=== PATIENT | male | born 1960 | race Caucasian/White ===

== ENCOUNTER 2016-12-04 16:13 | Emergency (ER) | payer MEDICAID ==
[~2016-12-04] VITALS: Ht 177.8 cm; Wt 64.0 kg
[~2016-12-04 16:13] MED LIST: AMOX1TAB64 PO; HALO5AMP3; HYDR-3240 PO; HYDR1TAB12; LORA-445 PO; LORA-446 PO; QUET100T4; SERT50TA PO; SULF1TAB24 PO
[2016-12-04 16:34] VITALS: BP 117/78
[2016-12-04 16:44] LABS: HEMOGLOBIN 14.8 g/dL (13.7-18.0)
[2016-12-04 16:55] LABS: DAU SCREEN DISCLAIMER
[2016-12-04 16:56] LABS: BLOOD UREA NITROGEN 8 mg/dL (7-18)
[2016-12-04 17:11] LABS: ACETAMINOPHEN < 2 mcg/mL (10-30)
== END 2016-12-04 20:37 | disposition home or self-care (01) ==
LOC: MERGE 16:13 → ED 20:31
DX: F10.129 Alcohol abuse with intoxication, unspecified (principal); F10.20 Alcohol dependence, uncomplicated
CPT/HCPCS: 36415; 80048; 80307; 80329; 82040; 85025; 99284; G0480

== ENCOUNTER 2016-12-06 20:46 | Emergency (ER) | payer MEDICAID ==
[~2016-12-06] VITALS: Ht 165.1 cm; Wt 64.0 kg
[2016-12-06 21:15] LABS: HEMOGLOBIN 14.4 g/dL (13.7-18.0)
[2016-12-06 21:26] LABS: BLOOD UREA NITROGEN 12 mg/dL (7-18)
[2016-12-06 21:29] LABS: ASPARTATE AMINO TRANSFERASE 33 U/L (15-37)
[2016-12-06 21:36] LABS: DIFF TOTAL CELLS COUNTED 100 CELL DIFF
[2016-12-06 21:39] LABS: VERIFY COUNTS? YES
[2016-12-06 21:41] LABS: ANISOCYTOSIS 1+; POIKILOCYTOSIS 1+; SMUDGE CELLS 1+
[2016-12-06] MEDS ORDERED: CHLORDIAZEPOXIDE 25 MG CAPSULE PO ONE (22:00)
[2016-12-06] MEDS ORDERED: CHLORDIAZEPOXIDE 5 MG CAPSULE PO ONE (22:00)
[2016-12-06 22:50] VITALS: BP 124/70
== END 2016-12-06 22:52 | disposition home or self-care (01) ==
LOC: ED 22:46
DX: F10.20 Alcohol dependence, uncomplicated (principal); F17.200 Nicotine dependence, unspecified, uncomplicated; Z88.5 Allergy status to narcotic agent
CPT/HCPCS: 36415; 80053; 80307; 85025; 99284

== ENCOUNTER 2016-12-16 22:23 | Emergency (ER) | payer MEDICAID ==
[~2016-12-16] VITALS: Ht 165.1 cm; Wt 75.0 kg
[~2016-12-16 22:23] MED LIST changes: +QUET50TA5 PO
[2016-12-16] MEDS ORDERED: SODIUM CHLORIDE FLUSH 10ML SYR IVF ONE (23:00)
[2016-12-16] MEDS ORDERED: SODIUM CHLORIDE 0.9% 1,000ML IVBOLUS ONE (23:00)
[2016-12-16 23:13] LABS: BLOOD UREA NITROGEN 11 mg/dL (7-18)
[2016-12-16 23:15] LABS: HEMOGLOBIN 15.2 g/dL (13.7-18.0)
[2016-12-16 23:18] LABS: ASPARTATE AMINO TRANSFERASE 48 U/L (15-37)
[2016-12-17 04:45] VITALS: BP 121/75
== END 2016-12-17 05:08 | disposition home or self-care (01) ==
LOC: ED 23:59
DX: F10.229 Alcohol dependence with intoxication, unspecified (principal); F17.200 Nicotine dependence, unspecified, uncomplicated
CPT/HCPCS: 36415; 71020; 80053; 85025; 93005; 96360; 96361; 99285; J7030

== ENCOUNTER 2016-12-22 12:34 | Emergency (ER) | payer MEDICAID ==
[~2016-12-22] VITALS: Ht 175.3 cm; Wt 75.0 kg
[2016-12-22 17:18] VITALS: BP 110/86
== END 2016-12-22 17:21 | disposition home or self-care (01) ==
LOC: ED 14:10
DX: F10.220 Alcohol dependence with intoxication, uncomplicated (principal); F15.10 Other stimulant abuse, uncomplicated
CPT/HCPCS: 99283

== ENCOUNTER 2016-12-22 23:07 | Emergency (ER) | payer MEDICAID ==
[~2016-12-22] VITALS: Ht 165.1 cm; Wt 67.9 kg
[2016-12-23] MEDS ORDERED: IBUPROFEN 200 MG TABLET ONE (04:51)
[2016-12-23 04:59] VITALS: BP 120/82
[2016-12-23] MEDS ORDERED: IBUPROFEN 200 MG TABLET PO ONE (05:00)
== END 2016-12-23 05:10 | disposition home or self-care (01) ==
LOC: ED 23:46
DX: F10.220 Alcohol dependence with intoxication, uncomplicated (principal)
CPT/HCPCS: 99283

== ENCOUNTER 2016-12-23 20:13 | Emergency (ER) | payer MEDICAID | END 2016-12-23 21:09 | disposition left against medical advice (07) | LOC: ED 20:18 | DX: F10.129 Alcohol abuse with intoxication, unspecified (principal); Z53.21 Procedure and treatment not carried out due to patient leaving prior to being seen by health care provider ==

== ENCOUNTER 2016-12-27 22:17 | Emergency (ER) | payer MEDICAID ==
[~2016-12-27] VITALS: Ht 165.1 cm; Wt 68.0 kg
[2016-12-27 22:41] VITALS: BP 131/89
== END 2016-12-28 00:25 | disposition home or self-care (01) ==
LOC: ED 23:13
DX: F10.220 Alcohol dependence with intoxication, uncomplicated (principal)
CPT/HCPCS: 99283

== ENCOUNTER 2016-12-28 14:19 | Emergency (ER) | payer MEDICAID ==
[~2016-12-28] VITALS: Ht 167.6 cm; Wt 68.1 kg
[2016-12-28 14:19] VITALS: BP 98/50
== END 2016-12-28 15:40 | disposition left against medical advice (07) ==
LOC: ED 14:51
DX: F10.220 Alcohol dependence with intoxication, uncomplicated (principal); Y90.9 Presence of alcohol in blood, level not specified
CPT/HCPCS: 99281

== ENCOUNTER 2017-03-16 07:02 | Emergency (ER) | payer MEDICAID ==
[~2017-03-16] VITALS: Ht 167.6 cm; Wt 74.0 kg
[2017-03-16 07:05] VITALS: BP 115/70
== END 2017-03-16 09:05 | disposition home or self-care (01) ==
LOC: ED 08:08
DX: S00.03XA Contusion of scalp, initial encounter (principal); F10.220 Alcohol dependence with intoxication, uncomplicated; Z88.5 Allergy status to narcotic agent; Y08.89XA Assault by other specified means, initial encounter; Y93.89 Activity, other specified; Y92.89 Other specified places as the place of occurrence of the external cause; Y99.8 Other external cause status
CPT/HCPCS: 70450; 72125; 99284

== ENCOUNTER 2021-05-01 20:56 | Emergency (ER) | payer MEDICAID ==
[~2021-05-01] VITALS: Ht 172.7 cm; Wt 80.0 kg
[~2021-05-01 20:56] MED LIST changes: +HYDR-2214 PO; -HYDR-3240 PO; -HYDR1TAB12; +HYDR1TAB13; +SULF-23 PO; -SULF1TAB24 PO
[2021-05-01] MEDS ORDERED: MAALOX/HYOSCYAMINE/LIDOCAINE 45 ML BTL ONE (21:31)
[2021-05-01] MEDS ORDERED: MAALOX/HYOSCYAMINE/LIDOCAINE 45 ML BTL PO ONE (22:30)
--- NOTE | 2021-05-01 23:30 | NUR ---
pt able to ambulate without assistance to restroom. states he will get a ride home, refused taxi voucher. provided with jacket for comfort. erp aware pt sobered up
[2021-05-01 23:33] VITALS: BP 109/66
== END 2021-05-01 23:53 | disposition home or self-care (01) ==
LOC: ED 23:00
DX: F10.120 Alcohol abuse with intoxication, uncomplicated (principal); Z72.9 Problem related to lifestyle, unspecified; F17.200 Nicotine dependence, unspecified, uncomplicated; Y90.0 Blood alcohol level of less than 20 mg/100 ml
CPT/HCPCS: 99283

== ENCOUNTER 2021-05-02 01:06 | Emergency (ER) | payer MEDICAID ==
[~2021-05-02] VITALS: Ht 172.7 cm; Wt 80.0 kg
[2021-05-02] MEDS ORDERED: ONDANSETRON ODT 8 MG ONE (01:18)
--- NOTE | 2021-05-02 01:26 | NUR ---
PT LAYING ON CART, CLEAR EMESIS NOTED. GIVEN ZOFRAN ODT. WILL CTM.
[2021-05-02] MEDS ORDERED: ONDANSETRON ODT 4 MG PO ONE (01:30)
--- NOTE | 2021-05-02 02:12 | NUR ---
attempted to breathalize pt. pt unable to take full breath and get breathilizer at this time. erp updated
[2021-05-02 04:53] VITALS: BP 105/81
== END 2021-05-02 05:07 | disposition home or self-care (01) ==
LOC: ED 01:23
DX: F10.120 Alcohol abuse with intoxication, uncomplicated (principal); Z72.9 Problem related to lifestyle, unspecified; F17.210 Nicotine dependence, cigarettes, uncomplicated; Y90.0 Blood alcohol level of less than 20 mg/100 ml
CPT/HCPCS: 99283; 99406; Q0162

== ENCOUNTER 2021-05-03 16:31 | Emergency (ER) | payer MEDICAID ==
[~2021-05-03] VITALS: Ht 177.8 cm; Wt 60.7 kg
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
--- NOTE | 2021-05-03 17:20 | NUR ---
PT LAYING IN BED ON LEFT SIDE YELLING OUT RANDOM GRUNTS. PT DOOR CLOSED FOR PRIVACY. STAFF IS WATCHING PT FOR SAFETY
[2021-05-03] MEDS ORDERED: ONDANSETRON ODT 8 MG ONE (17:49)
[2021-05-03] MEDS ORDERED: ONDANSETRON ODT 8 MG PO ONE (18:00)
--- NOTE | 2021-05-03 18:00 | NUR ---
late entry::PT VOMITING ON FLOOR. PT MEDICATED FOR NAUSEA/VOMITING PER EMAR.
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
[2021-05-03 19:22] VITALS: BP 128/85
--- NOTE | 2021-05-03 21:50 | NUR ---
PATIENT AMBULATORY WITH STEADY GAIT.
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
--- NOTE | 2021-05-03 22:52 | NUR ---
CONFIRMED WITH LAB THEY HAVE PATIENT URINE.
[2021-05-03 22:55] LABS: ALANINE AMINOTRANSFERASE 72 U/L (12-78); ALBUMIN 3.6 g/dL (3.4-5.0); ANION GAP 9 mmol/L (5-15); CHLORIDE 104 mmol/L (98-107); CREATININE 0.68 mg/dL (0.7-1.3); SALICYLATE LEVEL 2.2 mg/dL (2.8-20.0)
[2021-05-03 22:57] LABS: ALKALINE PHOSPHATASE 135 U/L (45-117); BILIRUBIN,TOTAL 0.4 mg/dL (0.2-1.0); MEAN CORPUSCULAR HEMOGLOBIN 30.2 pg (27.5-34.5); MEAN CORPUSCULAR HGB CONC 33.6 g/dL (33.2-36.2); MEAN PLATELET VOLUME 7.7 fL (7.4-10.4); PLATELET COUNT 175 x10^3/uL (130-400); RED CELL DISTRIBUTION WIDTH 14.2 % (9.4-14.8); TOTAL PROTEIN 6.5 g/dL (6.4-8.2)
[2021-05-03 23:08] LABS: AMPHETAMINE SCREEN, URINE Negative (Negative); BARBITURATE SCREEN, URINE Negative (Negative); BENZODIAZEPINE SCREEN, URINE Negative (Negative); CANNABINOID SCREEN, URINE Positive (Negative); COCAINE SCREEN, URINE Negative (Negative); METHADONE SCREEN, URINE Negative (Negative); OPIATE SCREEN, URINE Negative (Negative)
[2021-05-03 23:45] LABS: LYMPH#(MANUAL) 22.27 x10^3/uL (1-3.4); LYMPHS% (MANUAL) 85 % (22-44); MONOS#(MANUAL) 0.79 x10^3/uL (0.3-2.7); MONOS% (MANUAL) 3 % (2-9); SEG#(MANUAL) 3.14 x10^3/uL (1.8-6.8); SEGS% (MANUAL) 12 % (42-75)
[2021-05-03 23:46] LABS: SMUDGE CELLS 2+
[2021-05-03 23:47] LABS: <PLATELET ESTIMATE> ADEQUATE; <PLT MORPHOLOGY> NORMAL PLT MORPH; ANISOCYTOSIS 1+
--- NOTE | 2021-05-04 00:11 | NUR ---
PATIENT PROVIDED WITH TAXI TO [facility].
--- NOTE | 2021-05-04 00:12 | NUR ---
Patient given discharge instructions and they have confirmed that they understand the instructions. Patient ambulatory with steady gait. NAD, all questions answered appropriately, denies additional needs at this time. No personal belongings left in room after discharge.
== END 2021-05-04 00:13 | disposition home or self-care (01) ==
LOC: ED 16:41
DX: F10.129 Alcohol abuse with intoxication, unspecified (principal); F19.94 Other psychoactive substance use, unspecified with psychoactive substance-induced mood disorder; Y90.9 Presence of alcohol in blood, level not specified
CPT/HCPCS: 36415; 80053; 80299; 80307; 80320; 85025; 99283; Q0162; 80329; G0480

== ENCOUNTER 2021-05-06 21:58 | Emergency (ER) | payer MEDICAID ==
[~2021-05-06] VITALS: Ht 177.8 cm; Wt 77.3 kg
--- NOTE | 2021-05-06 23:41 | NUR ---
patient keeps removing monitor equipment. patient advised of importance of keeping it on. reinforcement needed
[2021-05-07 00:11] VITALS: BP 101/55
--- NOTE | 2021-05-07 01:40 | NUR ---
failed road test. Raji WERNER informed
--- NOTE | 2021-05-07 02:51 | NUR ---
patient eloped from ER. Patient A/O x 4, VSS, ambulated without assistance. patient provided with taxi voucher for safely getting home
== END 2021-05-07 02:57 | disposition left against medical advice (07) ==
LOC: ED 22:36
DX: F10.120 Alcohol abuse with intoxication, uncomplicated (principal); Y90.9 Presence of alcohol in blood, level not specified
CPT/HCPCS: 99283

== ENCOUNTER 2021-05-12 17:26 | Inpatient (IN) | payer MEDICAID ==
[~2021-05-12] VITALS: Ht 167.6 cm; Wt 61.8 kg
[2021-05-12] MEDS ORDERED: ACETAMINOPHEN 325 MG TABLET PO PRN (18:00)
[2021-05-12] MEDS ORDERED: DOCUSATE 100 MG CAPSULE PO PRN (18:00)
[2021-05-12] MEDS ORDERED: BISACODYL 10 MG SUPP PR PRN (18:00)
[2021-05-12] MEDS ORDERED: ONDANSETRON ODT 4 MG PO PRN (18:00)
[2021-05-12] MEDS ORDERED: POLYETHYLENE GLYCOL 17 GM PACKET PO PRN (18:00)
[2021-05-12] MEDS ORDERED: LORazepam 1MG TABLET ONE (22:31)
[2021-05-12] MEDS: LORazepam 1MG TABLET PO SCH (22:38)
[2021-05-12 23:31] VITALS: BP 146/88
[2021-05-13] MEDS: LORazepam 1MG TABLET PO SCH ×4 (04:30→22:27)
[2021-05-13 07:04] LABS: CHOL/HDL RATIO 2.4; FREE T4 (FREE THYROXINE) 1.08 ng/dL (0.76-1.46); LDL/HDL RATIO 1.1 (0.5-3.0)
[2021-05-13 07:37] VITALS: BP 164/79
[2021-05-13 07:39] LABS: MICROSCOPIC NOT IND
[2021-05-13] MEDS: ACAMPROSATE 333 MG TABLET.DR PO SCH ×3 (08:49→20:45)
[2021-05-13] MEDS: THIAMINE 100MG TABLET PO SCH (08:50)
[2021-05-13] MEDS: FOLIC ACID 1 MG TABLET PO SCH (08:50)
[2021-05-13] MEDS ORDERED: GABA600T7 PO (13:38)
[2021-05-13] MEDS ORDERED: ALBU8.5H8 INH (13:46)
[2021-05-13] MEDS ORDERED: SERT100T32 PO (13:46)
[2021-05-13] MEDS ORDERED: IBUP-1223 PO (13:46)
[2021-05-13] MEDS ORDERED: CYCL10TA2 PO (13:46)
[2021-05-13] MEDS ORDERED: ALBUTEROL HFA 90 MCG/SPRAY INH PRN (14:00)
[2021-05-13] MEDS ORDERED: IBUPROFEN 200 MG TABLET PO PRN (14:00)
[2021-05-13] MEDS: GABAPENTIN 300 MG CAPSULE PO SCH ×3 (14:37→20:44)
[2021-05-13] MEDS: SERTRALINE 100MG TABLET PO SCH (14:37)
[2021-05-13 19:27] VITALS: BP_SYST 146; BP_SYST 151; BP_DIAS 83; BP_DIAS 85
[2021-05-14] MEDS: LORazepam 1MG TABLET PO SCH ×3 (04:30→18:28)
[2021-05-14 07:06] VITALS: BP 133/85
[2021-05-14] MEDS: GABAPENTIN 300 MG CAPSULE PO SCH ×3 (08:09→20:46)
[2021-05-14] MEDS: SERTRALINE 100MG TABLET PO SCH (08:09)
[2021-05-14] MEDS: FOLIC ACID 1 MG TABLET PO SCH (08:10)
[2021-05-14] MEDS: THIAMINE 100MG TABLET PO SCH (08:10)
[2021-05-14] MEDS: ACAMPROSATE 333 MG TABLET.DR PO SCH ×3 (08:10→20:45)
[2021-05-14] MEDS ORDERED: LORazepam 1MG TABLET PO PRN (10:00)
[2021-05-14 19:05] VITALS: BP_SYST 154; BP_SYST 178; BP_DIAS 75; BP_DIAS 84
[2021-05-15] MEDS: LORazepam 1MG TABLET PO SCH ×3 (02:00→16:56)
[2021-05-15 07:37] VITALS: BP 128/72
[2021-05-15] MEDS: ACAMPROSATE 333 MG TABLET.DR PO SCH ×3 (08:17→20:44)
[2021-05-15] MEDS: THIAMINE 100MG TABLET PO SCH (08:17)
[2021-05-15] MEDS: GABAPENTIN 300 MG CAPSULE PO SCH ×3 (08:17→20:44)
[2021-05-15] MEDS: SERTRALINE 100MG TABLET PO SCH (08:17)
[2021-05-15] MEDS: FOLIC ACID 1 MG TABLET PO SCH (08:17)
[2021-05-15] MEDS: DIVALPROEX 500 MG TABLET.DR PO SCH ×2 (12:06→20:44)
[2021-05-15 19:35] VITALS: BP 130/78
[2021-05-16] MEDS: LORazepam 1MG TABLET PO SCH ×3 (02:00→18:08)
[2021-05-16 07:27] VITALS: BP 130/78
[2021-05-16] MEDS: ACAMPROSATE 333 MG TABLET.DR PO SCH ×3 (08:58→20:51)
[2021-05-16] MEDS: DIVALPROEX 500 MG TABLET.DR PO SCH ×2 (08:58→20:51)
[2021-05-16] MEDS: THIAMINE 100MG TABLET PO SCH (08:58)
[2021-05-16] MEDS: FOLIC ACID 1 MG TABLET PO SCH (08:58)
[2021-05-16] MEDS: SERTRALINE 100MG TABLET PO SCH (08:58)
[2021-05-16] MEDS: GABAPENTIN 300 MG CAPSULE PO SCH ×3 (08:59→20:51)
[2021-05-16 19:19] VITALS: BP 141/82
[2021-05-17] MEDS: LORazepam 1MG TABLET PO SCH ×3 (02:00→17:57)
[2021-05-17 06:38] VITALS: BP 135/89
[2021-05-17] MEDS: THIAMINE 100MG TABLET PO SCH (08:36)
[2021-05-17] MEDS: FOLIC ACID 1 MG TABLET PO SCH (08:36)
[2021-05-17] MEDS: DIVALPROEX 500 MG TABLET.DR PO SCH ×2 (08:36→20:04)
[2021-05-17] MEDS: SERTRALINE 100MG TABLET PO SCH (08:36)
[2021-05-17] MEDS: GABAPENTIN 300 MG CAPSULE PO SCH ×3 (08:37→20:04)
[2021-05-17] MEDS: ACAMPROSATE 333 MG TABLET.DR PO SCH ×3 (08:37→20:04)
[2021-05-17 19:33] VITALS: BP 140/78
[2021-05-18] MEDS: LORazepam 1MG TABLET PO SCH ×2 (02:01→10:00)
[2021-05-18 07:34] VITALS: BP 145/82
[2021-05-18] MEDS: DIVALPROEX 500 MG TABLET.DR PO SCH (09:15)
[2021-05-18] MEDS: SERTRALINE 100MG TABLET PO SCH (09:15)
[2021-05-18] MEDS: GABAPENTIN 300 MG CAPSULE PO SCH (09:16)
[2021-05-18] MEDS: FOLIC ACID 1 MG TABLET PO SCH (09:16)
[2021-05-18] MEDS: THIAMINE 100MG TABLET PO SCH (09:17)
[2021-05-18] MEDS: ACAMPROSATE 333 MG TABLET.DR PO SCH (09:37)
[2021-05-18] MEDS ORDERED: SERT100T32 PO (11:25)
[2021-05-18] MEDS ORDERED: DIVA-61 PO (11:25)
[2021-05-18] MEDS ORDERED: IBUP-1902 PO (11:25)
[2021-05-18] MEDS ORDERED: ALBU18HF INH (11:25)
[2021-05-18] MEDS ORDERED: GABA300C PO (11:25)
== END 2021-05-18 14:30 | disposition home or self-care (01) | DRG 885 ==
LOC: 3E 22:00
PROVIDERS: ADMIT Psychiatry & Neurology Psychosomatic Medicine; ATTEND Psychiatry & Neurology Psychosomatic Medicine
DX: F33.2 Major depressive disorder, recurrent severe without psychotic features (principal); F10.239 Alcohol dependence with withdrawal, unspecified; F41.9 Anxiety disorder, unspecified; G89.29 Other chronic pain; J45.909 Unspecified asthma, uncomplicated; Z79.899 Other long term (current) drug therapy
CPT/HCPCS: 36415; 71045; 80061; 81003; 84439; 84443; 87635; 93005

== ENCOUNTER 2021-05-20 06:35 | Inpatient (IN) | payer MEDICAID ==
[~2021-05-20] VITALS: Ht 167.6 cm; Wt 62.0 kg
[~2021-05-20 06:35] MED LIST changes: +ALBU18HF INH; +ALBU8.5H8 INH; +CYCL10TA2 PO; +DIVA-61 PO; +GABA300C PO; +GABA600T7 PO; +IBUP-1223 PO; +IBUP-1902 PO; +SERT100T32 PO
--- NOTE | 2021-05-20 07:00 | NUR ---
REPORT RECEIVED FROM MISTI LANDRY AT BEDSIDE. THIS RN ASSUMING CARE.
[2021-05-20 07:23] LABS: MEAN CORPUSCULAR HEMOGLOBIN 30.9 pg (27.5-34.5); MEAN CORPUSCULAR HGB CONC 33.7 g/dL (33.2-36.2); MEAN PLATELET VOLUME 7.1 fL (7.4-10.4); PLATELET COUNT 214 x10^3/uL (130-400); RED BLOOD COUNT 4.97 x10^6/uL (4.38-5.82); RED CELL DISTRIBUTION WIDTH 16.1 % (9.4-14.8)
--- NOTE | 2021-05-20 07:30 | NUR ---
PT A&O, RESPS EVEN AND UNLABORED, ALL MONITORS IN PLACE, NSR ON FOUNDER & CEO WITH NO ECTOPY. NEURO INTACT. PT ENDORSES FEELINGS OF SI, WITH PLAN TO JUMP OFF BRIDGE. SPO2 DESATURATES WHILE SLEEPING INTERMITTENTLY TO 78%, OXYGEN APPLIED AT 2L/MIN VIA NC. WHEN AWAKE SPOW >90% ON ROOM AIR. PT STATES THAT HE DID CONSUME ETOH PRIOR TO ARRIVAL. URINE SENT TO LAB. SITTER MONITORING FROM [facility] FOR SAFETY.
[2021-05-20 07:32] LABS: ALANINE AMINOTRANSFERASE 31 U/L (12-78); ALBUMIN 3.6 g/dL (3.4-5.0); ANION GAP 13 mmol/L (5-15); CALCIUM 8.6 mg/dL (8.5-10.1); CHLORIDE 102 mmol/L (98-107); CREATININE 0.65 mg/dL (0.7-1.3)
[2021-05-20 07:34] LABS: ALKALINE PHOSPHATASE 161 U/L (45-117); BILIRUBIN,TOTAL 0.2 mg/dL (0.2-1.0); TOTAL PROTEIN 6.8 g/dL (6.4-8.2)
[2021-05-20 07:35] LABS: SALICYLATE LEVEL < 1.7 mg/dL (2.8-20.0)
[2021-05-20 07:52] LABS: AMPHETAMINE SCREEN, URINE Negative (Negative); BARBITURATE SCREEN, URINE Negative (Negative); BENZODIAZEPINE SCREEN, URINE Positive (Negative); CANNABINOID SCREEN, URINE Positive (Negative); COCAINE SCREEN, URINE Negative (Negative); METHADONE SCREEN, URINE Negative (Negative); OPIATE SCREEN, URINE Negative (Negative)
[2021-05-20 08:12] LABS: LYMPHS% (MANUAL) 80 % (22-44); MONOS#(MANUAL) 0.81 x10^3/uL (0.3-2.7); MONOS% (MANUAL) 3 % (2-9); SEG#(MANUAL) 4.59 x10^3/uL (1.8-6.8)
[2021-05-20 08:13] LABS: SEGS% (MANUAL) 17 % (42-75)
[2021-05-20 08:14] LABS: <PLATELET ESTIMATE> ADEQUATE; <PLT MORPHOLOGY> NORMAL PLT MORPH; ANISOCYTOSIS 1+; SMUDGE CELLS 2+
--- NOTE | 2021-05-20 08:31 | NUR ---
MD GO NOTIFIED PT MEETING SIRS CRITERIA, NO SOURCE FOR SEPSIS AT THIS TIME. STATES HE WILL ORDER UA, CXR AND CT ABD PT HAS GENERALIZED ABD PAIN.
[2021-05-20] MEDS ORDERED: ALBUTEROL IH (08:47)
[2021-05-20] MEDS ORDERED: IBUPROFEN PO (08:47)
[2021-05-20] MEDS ORDERED: SERT100T PO (08:47)
[2021-05-20 09:16] LABS: MICROSCOPIC NOT IND
[2021-05-20] MEDS ORDERED: SODIUM CHLORIDE 0.9% 1,000ML IVBOLUS ONE (09:30)
[2021-05-20] MEDS ORDERED: OMNIPAQUE 350 MG/ML, 100ML BOTTLE ONE (09:44)
--- NOTE | 2021-05-20 10:04 | NUR ---
pt resting on gurney, a&o, resps even and unlabored. c/o generalized pain. sinus tach rate 100s on classroom monitor. all results back, chart up for recheck, awaiting md and dispo.
--- NOTE | 2021-05-20 10:32 | NUR ---
all labwork and results reviewed by jasmin ray, per , pt has no source of infection and has chronic elevated wbc. per md, no antibiotics indicated at this time.
--- NOTE | 2021-05-20 11:03 | NUR ---
PT SLEEPING ON GURNEY, RESPS EVEN AND UNLABORED. SITTER MONITORING FROM [facility] FOR SAFETY. AWAITNG PSYCH COUNTER CLERK [employer] ASSESSMENT AND DISPO.
[2021-05-20] MEDS ORDERED: ONDANSETRON 2MG/ML, 2ML IVPush ONE (12:00)
[2021-05-20] MEDS ORDERED: FAMOTIDINE 20 MG/2 ML IVPush ONE (12:00)
[2021-05-20] MEDS ORDERED: FAMOTIDINE 20 MG/2 ML ONE (12:41)
[2021-05-20] MEDS ORDERED: ONDANSETRON 2MG/ML, 2ML ONE (12:41)
[2021-05-20] MEDS ORDERED: LORazepam 1MG TABLET PO ONE (14:00)
[2021-05-20] MEDS ORDERED: LORazepam 2 MG/ML, 1ML IVPush ONE ×2 (14:00→18:00)
[2021-05-20] MEDS ORDERED: LORazepam 2 MG/ML, 1ML ONE ×3 (14:07→17:40)
--- NOTE | 2021-05-20 14:30 | NUR ---
late entry for 1430: report to MISTI Burks for a meal break. pt sleeping, resps even and unlabored, nadn.
--- NOTE | 2021-05-20 15:30 | NUR ---
pt moved to room 2 which was secured. pt sleeping, resps even and unlabored. yohan.
--- NOTE | 2021-05-20 16:20 | NUR ---
pt tremulous when awakened, trialed on room air with room air sat 82%, even when awake and stimulated. MD Daly notified. MD Daly had received sign out from MD Brunner. MD Daly assessed the patient at bedside. orders received for ativan, neb tx and electrolyte replacement. Addendum: 05/20/21 at 1622 by KOFI pt tremulous when awakened, trialed on room air with room air sat 82%, even when awake and stimulated. MD Daly notified. MD Daly had received sign out from MD Brunner. MD Daly notified of hypoxia and tremors despite ativan IV dose administered at 1410. assessed the patient at bedside. orders received for ativan, neb tx and electrolyte replacement.
[2021-05-20] MEDS ORDERED: MAGNESIUM SULFATE 1 GM, THIAMINE 100 MG, FOLIC ACID 1 MG, MVI ADULT 10 ML in SODIUM CHL... IV ONE (16:30)
[2021-05-20] MEDS ORDERED: ALBUTEROL SULFATE 2.5 MG/3 ML ONE (16:36)
[2021-05-20] MEDS ORDERED: ALBUTEROL SULFATE 2.5 MG/3 ML NPPB ONE (17:00)
--- NOTE | 2021-05-20 17:27 | NUR ---
report given to RN MJ, pt awaiting transport to room 434.
[2021-05-20] MEDS ORDERED: LORazepam 2 MG/ML, 1ML IV ONE (17:30)
[2021-05-20] MEDS ORDERED: SODIUM CHLORIDE FLUSH 10ML SYR IVF ONE (17:30)
--- NOTE | 2021-05-20 17:45 | NUR ---
pt remains very tremulous, but is awake and alert and oriented. nsr on in home aide with no ectopy, rate 110s. MD Daly notified, repeat dose ativan ordered and administered per emar. pt awaiting transport to medical floor at this time.
[2021-05-20] MEDS ORDERED: LORazepam 2 MG/ML, 1ML IV PRN ×5 (18:00)
[2021-05-20] MEDS ORDERED: ALBUTEROL/IPRATROPIUM 2.5MG/0.5MG, 3 ML HHN SCH (18:00)
[2021-05-20] MEDS ORDERED: LORazepam 0.5MG TABLET PO PRN (18:00)
[2021-05-20] MEDS ORDERED: LACTATED RINGERS 1,000 ML IV SCH (18:00)
[2021-05-20] MEDS ORDERED: LORazepam 1MG TABLET PO PRN ×3 (18:00)
[2021-05-20] MEDS ORDERED: POLYETHYLENE GLYCOL 17 GM PACKET PO PRN (18:00)
[2021-05-20] MEDS ORDERED: LIDODERM 5% PATCH TD PRN (18:00)
[2021-05-20] MEDS ORDERED: ONDANSETRON ODT 4 MG PO PRN (18:00)
[2021-05-20] MEDS ORDERED: LABETALOL 5MG/ML, 20ML IVPush PRN (18:00)
[2021-05-20 18:02] VITALS: BP 131/80
[2021-05-20 18:06] VITALS: BP 131/80
[2021-05-20] MEDS: GABAPENTIN 300 MG CAPSULE PO SCH ×2 (18:36→21:28)
[2021-05-20] MEDS: ENOXAPARIN 40 MG/0.4 ML SQ SCH (19:29)
[2021-05-20] MEDS: ALBUTEROL-IPRATROPIUM MDI INH INH SCH (21:00)
[2021-05-20] MEDS: DIVALPROEX 500 MG TABLET.DR PO SCH (21:28)
[2021-05-21] MEDS: LORazepam 1MG TABLET PO PRN ×2 (02:37→04:49)
[2021-05-21] MEDS: ALBUTEROL-IPRATROPIUM MDI INH INH SCH ×4 (02:37→22:45)
[2021-05-21 02:43] VITALS: BP 135/80
[2021-05-21 04:46] LABS: ANION GAP 4 mmol/L (5-15); CALCIUM 7.8 mg/dL (8.5-10.1); CHLORIDE 106 mmol/L (98-107)
[2021-05-21 04:47] LABS: CREATININE 0.72 mg/dL (0.7-1.3)
[2021-05-21 04:49] LABS: MEAN CORPUSCULAR HEMOGLOBIN 30.8 pg (27.5-34.5); MEAN CORPUSCULAR HGB CONC 33.4 g/dL (33.2-36.2); MEAN PLATELET VOLUME 7.3 fL (7.4-10.4); PLATELET COUNT 181 x10^3/uL (130-400); RED BLOOD COUNT 4.26 x10^6/uL (4.38-5.82)
[2021-05-21 06:25] LABS: <PLATELET ESTIMATE> ADEQUATE; <PLT MORPHOLOGY> NORMAL PLT MORPH; ANISOCYTOSIS 1+; BAND#(MANUAL) 0.39 x10^3/uL; BANDS%(MANUAL) 3 % (0-7); LYMPH#(MANUAL) 9.49 x10^3/uL (1-3.4); LYMPHS% (MANUAL) 73 % (22-44); MONOS#(MANUAL) 0.39 x10^3/uL (0.3-2.7); MONOS% (MANUAL) 3 % (2-9); SEG#(MANUAL) 2.73 x10^3/uL (1.8-6.8); SEGS% (MANUAL) 21 % (42-75)
[2021-05-21 06:43] VITALS: BP 142/80
[2021-05-21] MEDS: SENNA/DOCUSATE TABLET PO SCH ×2 (09:00→09:59)
[2021-05-21] MEDS: PANTOPRAZOLE 40MG TABLET PO SCH (09:58)
[2021-05-21] MEDS: GABAPENTIN 300 MG CAPSULE PO SCH ×2 (09:58→17:58)
[2021-05-21] MEDS: FOLIC ACID 1 MG TABLET PO SCH (09:59)
[2021-05-21] MEDS: THIAMINE 100MG TABLET PO SCH (09:59)
[2021-05-21] MEDS: DOXYCYCLINE 100MG TABLET PO SCH ×2 (09:59→21:56)
[2021-05-21] MEDS: DIVALPROEX 500 MG TABLET.DR PO SCH ×2 (09:59→21:56)
[2021-05-21] MEDS: SERTRALINE 100MG TABLET PO SCH (09:59)
[2021-05-21] MEDS: ACETAMINOPHEN 325 MG TABLET PO PRN ×4 (12:38→23:45)
[2021-05-21] MEDS: CYCLOBENZAPRINE 10 MG TABLET PO PRN (12:50)
[2021-05-21 14:27] VITALS: BP 111/68
[2021-05-21] MEDS ORDERED: CEFTRIAXONE 1,000 MG in DEXTROSE 5% 50 ML IVPB SCH (15:00)
[2021-05-21 15:31] VITALS: BP 150/77
[2021-05-21] MEDS ORDERED: SODIUM CHLORIDE 0.9% 1,000ML IVBOLUS ONE (16:00)
[2021-05-21] MEDS: AMPICILLIN/SULBACTAM 1,500 MG in SODIUM CHLORIDE 0.9% 50 ML IV SCH (17:58)
[2021-05-21] MEDS: ALBUTEROL HFA 90 MCG/SPRAY INH PRN (19:37)
[2021-05-21] MEDS: ENOXAPARIN 40 MG/0.4 ML SQ SCH (19:38)
[2021-05-21 19:41] VITALS: BP 147/84
[2021-05-21 21:53] VITALS: BP 134/80
[2021-05-22 00:12] VITALS: BP 121/77
[2021-05-22] MEDS: AMPICILLIN/SULBACTAM 1,500 MG in SODIUM CHLORIDE 0.9% 50 ML IV SCH (02:41)
[2021-05-22] MEDS: GABAPENTIN 300 MG CAPSULE PO SCH ×3 (02:41→16:42)
[2021-05-22] MEDS: ALBUTEROL-IPRATROPIUM MDI INH INH SCH ×4 (05:02→22:26)
[2021-05-22 05:09] LABS: MEAN CORPUSCULAR HEMOGLOBIN 30.9 pg (27.5-34.5); MEAN CORPUSCULAR HGB CONC 33.7 g/dL (33.2-36.2); MEAN PLATELET VOLUME 7.6 fL (7.4-10.4); PLATELET COUNT 161 x10^3/uL (130-400); RED BLOOD COUNT 4.15 x10^6/uL (4.38-5.82); RED CELL DISTRIBUTION WIDTH 15.7 % (9.4-14.8)
[2021-05-22 05:22] LABS: CHLORIDE 103 mmol/L (98-107)
[2021-05-22 05:29] LABS: ALANINE AMINOTRANSFERASE 24 U/L (12-78); ALBUMIN 2.4 g/dL (3.4-5.0); ALKALINE PHOSPHATASE 122 U/L (45-117); ANION GAP 6 mmol/L (5-15); BILIRUBIN,TOTAL 0.6 mg/dL (0.2-1.0); CALCIUM 7.4 mg/dL (8.5-10.1); CREATININE 0.68 mg/dL (0.7-1.3); TOTAL PROTEIN 5.7 g/dL (6.4-8.2)
[2021-05-22 05:50] LABS: BAND#(MANUAL) 0.82 x10^3/uL; BANDS%(MANUAL) 4 % (0-7); MONOS% (MANUAL) 1 % (2-9)
[2021-05-22 05:51] LABS: LYMPH#(MANUAL) 14.48 x10^3/uL (1-3.4); LYMPHS% (MANUAL) 71 % (22-44); SEGS% (MANUAL) 24 % (42-75)
[2021-05-22 05:52] LABS: <PLATELET ESTIMATE> ADEQUATE; <PLT MORPHOLOGY> NORMAL PLT MORPH; <RBC MORPHOLOGY> NORMAL; SMUDGE CELLS 2+
[2021-05-22 06:54] VITALS: BP 129/78
[2021-05-22] MEDS: SENNA/DOCUSATE TABLET PO SCH (09:00)
[2021-05-22] MEDS: THIAMINE 100MG TABLET PO SCH (09:03)
[2021-05-22] MEDS: SERTRALINE 100MG TABLET PO SCH (09:03)
[2021-05-22] MEDS: DOXYCYCLINE 100MG TABLET PO SCH ×2 (09:03→20:57)
[2021-05-22] MEDS: PANTOPRAZOLE 40MG TABLET PO SCH (09:05)
[2021-05-22] MEDS: FOLIC ACID 1 MG TABLET PO SCH (09:05)
[2021-05-22] MEDS: DIVALPROEX 500 MG TABLET.DR PO SCH ×2 (09:05→20:57)
[2021-05-22] MEDS: AMPICILLIN/SULBACTAM 3 GM in SODIUM CHLORIDE 0.9% 100 ML IV SCH ×4 (10:22→22:22)
[2021-05-22 13:14] VITALS: BP 125/77
[2021-05-22] MEDS: ALBUTEROL HFA 90 MCG/SPRAY INH PRN (16:43)
[2021-05-22 19:04] VITALS: BP_SYST 121; BP_SYST 96; BP_DIAS 57; BP_DIAS 72
[2021-05-22] MEDS: ENOXAPARIN 40 MG/0.4 ML SQ SCH (19:33)
[2021-05-23 01:48] VITALS: BP 120/72
[2021-05-23] MEDS: GABAPENTIN 300 MG CAPSULE PO SCH ×4 (01:51→20:12)
[2021-05-23] MEDS: AMPICILLIN/SULBACTAM 3 GM in SODIUM CHLORIDE 0.9% 100 ML IV SCH ×4 (04:19→22:24)
[2021-05-23] MEDS: ALBUTEROL-IPRATROPIUM MDI INH INH SCH ×4 (04:19→22:25)
[2021-05-23 05:10] LABS: MEAN CORPUSCULAR HEMOGLOBIN 31.4 pg (27.5-34.5); MEAN CORPUSCULAR HGB CONC 34.1 g/dL (33.2-36.2); MEAN PLATELET VOLUME 7.9 fL (7.4-10.4); PLATELET COUNT 154 x10^3/uL (130-400); RED BLOOD COUNT 3.86 x10^6/uL (4.38-5.82); RED CELL DISTRIBUTION WIDTH 15.9 % (9.4-14.8)
[2021-05-23 05:12] LABS: HCT (SEDRATE) 35.5 % (39.2-51.8)
[2021-05-23] MEDS: ACETAMINOPHEN 325 MG TABLET PO PRN (05:14)
[2021-05-23 05:25] LABS: ALBUMIN 2.1 g/dL (3.4-5.0); ANION GAP 4 mmol/L (5-15); CALCIUM 7.8 mg/dL (8.5-10.1); CHLORIDE 103 mmol/L (98-107)
[2021-05-23 05:33] LABS: ALANINE AMINOTRANSFERASE 20 U/L (12-78); ALKALINE PHOSPHATASE 100 U/L (45-117); BILIRUBIN,TOTAL 0.8 mg/dL (0.2-1.0); CREATININE 0.57 mg/dL (0.7-1.3); TOTAL PROTEIN 5.4 g/dL (6.4-8.2)
[2021-05-23 05:56] LABS: BAND#(MANUAL) 0.68 x10^3/uL; BANDS%(MANUAL) 4 % (0-7); LYMPH#(MANUAL) 9.18 x10^3/uL (1-3.4); LYMPHS% (MANUAL) 54 % (22-44); METAMYELOCYTES# (MANUAL) 0.17 x10^3/uL (0-0); METAMYELOCYTES% (MANUAL) 1 % (0-1); MONOS#(MANUAL) 0.34 x10^3/uL (0.3-2.7); MONOS% (MANUAL) 2 % (2-9); SEG#(MANUAL) 6.63 x10^3/uL (1.8-6.8); SEGS% (MANUAL) 39 % (42-75)
[2021-05-23 05:57] LABS: ANISOCYTOSIS 1+; SMUDGE CELLS 2+
[2021-05-23 05:58] LABS: <PLATELET ESTIMATE> ADEQUATE; <PLT MORPHOLOGY> NORMAL PLT MORPH
[2021-05-23] MEDS: SERTRALINE 100MG TABLET PO SCH (07:41)
[2021-05-23] MEDS: DOXYCYCLINE 100MG TABLET PO SCH ×2 (07:41→20:12)
[2021-05-23] MEDS: FOLIC ACID 1 MG TABLET PO SCH (07:41)
[2021-05-23] MEDS: DIVALPROEX 500 MG TABLET.DR PO SCH ×2 (07:41→20:12)
[2021-05-23] MEDS: PANTOPRAZOLE 40MG TABLET PO SCH (07:41)
[2021-05-23] MEDS: THIAMINE 100MG TABLET PO SCH (07:41)
[2021-05-23] MEDS: SENNA/DOCUSATE TABLET PO SCH (07:42)
[2021-05-23 07:56] VITALS: BP 150/88
[2021-05-23 13:14] VITALS: BP 147/86
[2021-05-23 20:03] VITALS: BP 153/85
[2021-05-23] MEDS: ENOXAPARIN 40 MG/0.4 ML SQ SCH (20:11)
[2021-05-24 03:46] VITALS: BP 138/81
[2021-05-24] MEDS: ALBUTEROL-IPRATROPIUM MDI INH INH SCH ×4 (03:46→21:28)
[2021-05-24] MEDS: AMPICILLIN/SULBACTAM 3 GM in SODIUM CHLORIDE 0.9% 100 ML IV SCH ×4 (03:46→21:28)
[2021-05-24 05:46] LABS: CHLORIDE 102 mmol/L (98-107)
[2021-05-24 05:57] LABS: ANION GAP 7 mmol/L (5-15); CREATININE 0.53 mg/dL (0.7-1.3); MEAN CORPUSCULAR HEMOGLOBIN 30.9 pg (27.5-34.5); MEAN CORPUSCULAR HGB CONC 33.6 g/dL (33.2-36.2); MEAN PLATELET VOLUME 7.9 fL (7.4-10.4); PLATELET COUNT 163 x10^3/uL (130-400); RED BLOOD COUNT 3.99 x10^6/uL (4.38-5.82); RED CELL DISTRIBUTION WIDTH 15.1 % (9.4-14.8)
[2021-05-24 06:34] LABS: <PLATELET ESTIMATE> ADEQUATE; <PLT MORPHOLOGY> NORMAL PLT MORPH; ANISOCYTOSIS 1+; LYMPH#(MANUAL) 10.62 x10^3/uL (1-3.4); LYMPHS% (MANUAL) 64 % (22-44); MONOS#(MANUAL) 0.33 x10^3/uL (0.3-2.7); MONOS% (MANUAL) 2 % (2-9); SEG#(MANUAL) 5.64 x10^3/uL (1.8-6.8); SEGS% (MANUAL) 34 % (42-75)
[2021-05-24 06:50] VITALS: BP 153/79
[2021-05-24] MEDS: SERTRALINE 100MG TABLET PO SCH (07:54)
[2021-05-24] MEDS: DOXYCYCLINE 100MG TABLET PO SCH ×2 (07:54→21:27)
[2021-05-24] MEDS: PANTOPRAZOLE 40MG TABLET PO SCH (07:54)
[2021-05-24] MEDS: DIVALPROEX 500 MG TABLET.DR PO SCH ×2 (07:54→21:27)
[2021-05-24] MEDS: GABAPENTIN 300 MG CAPSULE PO SCH ×3 (07:54→21:27)
[2021-05-24] MEDS: THIAMINE 100MG TABLET PO SCH (07:54)
[2021-05-24] MEDS: FOLIC ACID 1 MG TABLET PO SCH (07:54)
[2021-05-24] MEDS: SENNA/DOCUSATE TABLET PO SCH (09:00)
[2021-05-24 13:10] VITALS: BP 143/81
[2021-05-24 19:39] VITALS: BP 160/93
[2021-05-24] MEDS: ENOXAPARIN 40 MG/0.4 ML SQ SCH (19:53)
[2021-05-24] MEDS: ALBUTEROL HFA 90 MCG/SPRAY INH PRN (19:54)
[2021-05-25] MEDS: ALBUTEROL-IPRATROPIUM MDI INH INH SCH ×4 (03:00→19:58)
[2021-05-25] MEDS: MELATONIN 5 MG TABLET PO PRN ×2 (03:12→19:59)
[2021-05-25] MEDS: ALBUTEROL HFA 90 MCG/SPRAY INH PRN ×3 (03:13→14:43)
[2021-05-25 03:14] VITALS: BP 143/93
[2021-05-25] MEDS: AMPICILLIN/SULBACTAM 3 GM in SODIUM CHLORIDE 0.9% 100 ML IV SCH ×4 (03:57→22:18)
[2021-05-25] MEDS: CYCLOBENZAPRINE 10 MG TABLET PO PRN (03:57)
[2021-05-25 05:08] LABS: MEAN PLATELET VOLUME 7.6 fL (7.4-10.4); PLATELET COUNT 199 x10^3/uL (130-400); RED BLOOD COUNT 4.23 x10^6/uL (4.38-5.82); RED CELL DISTRIBUTION WIDTH 15.2 % (9.4-14.8)
[2021-05-25 05:18] LABS: ALANINE AMINOTRANSFERASE 21 U/L (12-78); ALBUMIN 2.5 g/dL (3.4-5.0); ANION GAP 6 mmol/L (5-15); CALCIUM 8.1 mg/dL (8.5-10.1); CHLORIDE 102 mmol/L (98-107); CREATININE 0.61 mg/dL (0.7-1.3)
[2021-05-25 05:20] LABS: ALKALINE PHOSPHATASE 92 U/L (45-117); BILIRUBIN,TOTAL 0.4 mg/dL (0.2-1.0); TOTAL PROTEIN 5.7 g/dL (6.4-8.2)
[2021-05-25 06:01] LABS: BAND#(MANUAL) 0.17 x10^3/uL; BANDS%(MANUAL) 1 % (0-7); LYMPH#(MANUAL) 12.35 x10^3/uL (1-3.4); LYMPHS% (MANUAL) 71 % (22-44); MONOS#(MANUAL) 0.35 x10^3/uL (0.3-2.7); MONOS% (MANUAL) 2 % (2-9); SEG#(MANUAL) 4.52 x10^3/uL (1.8-6.8); SEGS% (MANUAL) 26 % (42-75)
[2021-05-25 06:02] LABS: ANISOCYTOSIS 1+; SMUDGE CELLS 2+
[2021-05-25 06:03] LABS: <PLATELET ESTIMATE> ADEQUATE; <PLT MORPHOLOGY> NORMAL PLT MORPH
[2021-05-25 06:39] VITALS: BP 132/91
[2021-05-25] MEDS: GABAPENTIN 300 MG CAPSULE PO SCH ×3 (07:41→19:58)
[2021-05-25] MEDS: SERTRALINE 100MG TABLET PO SCH (07:42)
[2021-05-25] MEDS: DOXYCYCLINE 100MG TABLET PO SCH ×2 (07:42→19:59)
[2021-05-25] MEDS: THIAMINE 100MG TABLET PO SCH (07:42)
[2021-05-25] MEDS: FOLIC ACID 1 MG TABLET PO SCH (07:42)
[2021-05-25] MEDS: PANTOPRAZOLE 40MG TABLET PO SCH (07:47)
[2021-05-25] MEDS: DIVALPROEX 500 MG TABLET.DR PO SCH (08:57)
[2021-05-25] MEDS: SENNA/DOCUSATE TABLET PO SCH (08:57)
[2021-05-25 14:39] VITALS: BP 147/83
[2021-05-25 19:43] VITALS: BP 147/87
[2021-05-25] MEDS: ENOXAPARIN 40 MG/0.4 ML SQ SCH (19:58)
[2021-05-25] MEDS: DIVALPROEX 500 MG TAB.ER.24H PO SCH (19:59)
[2021-05-25] MEDS: TEMAZEPAM 15 MG CAPSULE PO PRN (22:39)
[2021-05-26] MEDS: AMPICILLIN/SULBACTAM 3 GM in SODIUM CHLORIDE 0.9% 100 ML IV SCH ×3 (03:40→16:21)
[2021-05-26] MEDS: ALBUTEROL-IPRATROPIUM MDI INH INH SCH ×4 (03:40→21:15)
[2021-05-26 03:43] VITALS: BP 134/83
[2021-05-26 05:48] LABS: C-REACTIVE PROTEIN, QUANT 0.84 mg/dL (0.02-0.49); CREATININE 0.66 mg/dL (0.7-1.3)
[2021-05-26 05:49] LABS: ANION GAP 5 mmol/L (5-15); CALCIUM 7.9 mg/dL (8.5-10.1); CHLORIDE 102 mmol/L (98-107)
[2021-05-26 06:49] VITALS: BP 126/85
[2021-05-26 08:30] VITALS: BP 144/92
[2021-05-26] MEDS: SENNA/DOCUSATE TABLET PO SCH (08:49)
[2021-05-26] MEDS: THIAMINE 100MG TABLET PO SCH (08:56)
[2021-05-26] MEDS: FOLIC ACID 1 MG TABLET PO SCH (08:56)
[2021-05-26] MEDS: GABAPENTIN 300 MG CAPSULE PO SCH ×3 (08:56→21:15)
[2021-05-26] MEDS: SERTRALINE 100MG TABLET PO SCH (08:56)
[2021-05-26] MEDS: PANTOPRAZOLE 40MG TABLET PO SCH (08:57)
[2021-05-26 14:17] VITALS: BP 167/92
[2021-05-26 18:36] VITALS: BP 154/87
[2021-05-26] MEDS: ALBUTEROL HFA 90 MCG/SPRAY INH PRN (18:43)
[2021-05-26] MEDS: ENOXAPARIN 40 MG/0.4 ML SQ SCH (19:53)
[2021-05-26] MEDS: DIVALPROEX 500 MG TAB.ER.24H PO SCH (21:15)
[2021-05-26] MEDS ORDERED: AMPICILLIN/SULBACTAM 3 GM in SODIUM CHLORIDE 0.9% 100 ML IV SCH (22:00)
[2021-05-26] MEDS: TEMAZEPAM 15 MG CAPSULE PO PRN (22:09)
[2021-05-27 01:28] VITALS: BP 133/82
[2021-05-27] MEDS: ALBUTEROL-IPRATROPIUM MDI INH INH SCH ×3 (04:05→15:22)
[2021-05-27] MEDS: AMOXICILLIN/CLAV 875-125MG TABLET PO SCH ×2 (07:23→09:15)
[2021-05-27] MEDS: PANTOPRAZOLE 40MG TABLET PO SCH (07:23)
[2021-05-27 08:41] VITALS: BP 159/82
[2021-05-27] MEDS: SENNA/DOCUSATE TABLET PO SCH (09:08)
[2021-05-27] MEDS: FOLIC ACID 1 MG TABLET PO SCH (09:09)
[2021-05-27] MEDS: THIAMINE 100MG TABLET PO SCH (09:09)
[2021-05-27] MEDS: GABAPENTIN 300 MG CAPSULE PO SCH ×2 (09:09→15:21)
[2021-05-27] MEDS: SERTRALINE 100MG TABLET PO SCH (09:09)
[2021-05-27 12:59] VITALS: BP 147/78
[2021-05-27] MEDS ORDERED: THIA100T67 PO (13:10)
[2021-05-27] MEDS ORDERED: TEMA15CA6 PO (13:10)
[2021-05-27] MEDS ORDERED: ALBU18HF INH (13:10)
[2021-05-27] MEDS ORDERED: FOLI1TAB32 PO (13:10)
[2021-05-27] MEDS ORDERED: ACET325T26 PO (13:10)
[2021-05-27] MEDS ORDERED: ONDA4TAB13 PO (13:10)
[2021-05-27] MEDS ORDERED: PANT40TA6 PO (13:10)
[2021-05-27] MEDS ORDERED: AMOX1TAB12 PO (13:28)
[2021-05-27] MEDS: ALBUTEROL HFA 90 MCG/SPRAY INH PRN (13:58)
== END 2021-05-27 15:40 | DRG 720 ==
LOC: ED 07:10 → EDIP 16:20 → 4NW 17:57
PROVIDERS: ADMIT Internal Medicine; ATTEND Internal Medicine
DX: A41.9 Sepsis, unspecified organism (principal); J96.01 Acute respiratory failure with hypoxia; J69.0 Pneumonitis due to inhalation of food and vomit; F33.2 Major depressive disorder, recurrent severe without psychotic features; F10.229 Alcohol dependence with intoxication, unspecified; F10.239 Alcohol dependence with withdrawal, unspecified; F12.90 Cannabis use, unspecified, uncomplicated; F17.210 Nicotine dependence, cigarettes, uncomplicated; J44.0 Chronic obstructive pulmonary disease with (acute) lower respiratory infection; J44.1 Chronic obstructive pulmonary disease with (acute) exacerbation; R45.851 Suicidal ideations; Z20.822 Contact with and (suspected) exposure to COVID-19; M54.9 Dorsalgia, unspecified; Z91.19 Patient's noncompliance with other medical treatment and regimen; Z88.5 Allergy status to narcotic agent
CPT/HCPCS: 36415; 84145; 87046; 96361; 96374; 96375; 96376; 99285; J7613; 71045; 74177; 80048; 80053; 80299; 80307; 80320; 80329; 81003; 83605; 83690; 83735; 84100; 85025; 85651; 86140; 87040; 87070; 87077; 87184; 87205; 87635; G0378; J0295; J1650; J2405; J3411; J3475; Q0162; Q9967; G0480; J2060; J7030; J7512

== ENCOUNTER 2021-05-27 13:24 | Inpatient (IN) | payer MEDICAID ==
[~2021-05-27] VITALS: Ht 167.6 cm; Wt 61.8 kg
[~2021-05-27 13:24] MED LIST changes: +ACET325T26 PO; +ALBUTEROL IH; +FOLI1TAB32 PO; +IBUPROFEN PO; +ONDA4TAB13 PO; +PANT40TA6 PO; +SERT100T PO; +TEMA15CA6 PO; +THIA100T67 PO
[2021-05-27] MEDS ORDERED: AMOX1TAB12 PO (13:28)
[2021-05-27] MEDS ORDERED: DOCUSATE 100 MG CAPSULE PO PRN (14:00)
[2021-05-27] MEDS ORDERED: ONDANSETRON ODT 4 MG PO PRN (14:00)
[2021-05-27] MEDS ORDERED: POLYETHYLENE GLYCOL 17 GM PACKET PO PRN (14:00)
[2021-05-27] MEDS ORDERED: BISACODYL 10 MG SUPP PR PRN (14:00)
[2021-05-27] MEDS ORDERED: ACETAMINOPHEN 325 MG TABLET PO PRN (14:00)
[2021-05-27] MEDS ORDERED: PLEASE ENTER HEIGHT AND WEIGHT MC SCH (16:00)
[2021-05-27 19:09] VITALS: BP 144/78
[2021-05-27] MEDS ORDERED: TRAZODONE 50MG TABLET PO PRN (21:30)
[2021-05-27] MEDS ORDERED: QUETIAPINE 25MG TABLET PO PRN (21:30)
[2021-05-28 07:34] VITALS: BP 122/76
[2021-05-28] MEDS ORDERED: ALBUTEROL HFA 90 MCG/SPRAY INH PRN (12:30)
[2021-05-28] MEDS: THIAMINE 100MG TABLET PO SCH (12:30)
[2021-05-28] MEDS: FOLIC ACID 1 MG TABLET PO SCH (13:35)
[2021-05-28] MEDS: SERTRALINE 100MG TABLET PO SCH (13:35)
[2021-05-28] MEDS: CYCLOBENZAPRINE 10 MG TABLET PO PRN (13:35)
[2021-05-28] MEDS ORDERED: GABAPENTIN 300 MG CAPSULE ONE (15:00)
[2021-05-28] MEDS: GABAPENTIN 300 MG CAPSULE PO SCH ×2 (15:01→20:58)
[2021-05-28 19:10] VITALS: BP 133/84
[2021-05-28] MEDS: ALBUTEROL-IPRATROPIUM MDI INH INH SCH (20:56)
[2021-05-28] MEDS: AMOXICILLIN/CLAV 875-125MG TABLET PO SCH (20:57)
[2021-05-28] MEDS: DOXEPIN 25 MG CAPSULE PO SCH (20:57)
[2021-05-28] MEDS ORDERED: AMOXICILLIN/CLAV 875-125MG TABLET PO SCH (21:00)
[2021-05-29 07:33] VITALS: BP 123/65
[2021-05-29] MEDS: PANTOPRAZOLE 40MG TABLET PO SCH (07:40)
[2021-05-29 08:21] LABS: MEAN CORPUSCULAR HEMOGLOBIN 30.9 pg (27.5-34.5); MEAN CORPUSCULAR HGB CONC 33.5 g/dL (33.2-36.2); PLATELET COUNT 303 x10^3/uL (130-400); RED BLOOD COUNT 5.13 x10^6/uL (4.38-5.82)
[2021-05-29 08:33] LABS: ANION GAP 7 mmol/L (5-15); CALCIUM 8.4 mg/dL (8.5-10.1); CHLORIDE 106 mmol/L (98-107); CREATININE 0.83 mg/dL (0.7-1.3)
[2021-05-29] MEDS: AMOXICILLIN/CLAV 875-125MG TABLET PO SCH ×2 (08:39→21:12)
[2021-05-29] MEDS: GABAPENTIN 300 MG CAPSULE PO SCH ×3 (08:40→21:07)
[2021-05-29] MEDS: FOLIC ACID 1 MG TABLET PO SCH (08:40)
[2021-05-29] MEDS: SERTRALINE 100MG TABLET PO SCH (08:41)
[2021-05-29] MEDS: THIAMINE 100MG TABLET PO SCH (08:43)
[2021-05-29] MEDS: ALBUTEROL-IPRATROPIUM MDI INH INH SCH ×2 (08:44→21:10)
[2021-05-29 08:47] LABS: <PLATELET ESTIMATE> ADEQUATE; <PLT MORPHOLOGY> NORMAL PLT MORPH; ANISOCYTOSIS 1+; LYMPH#(MANUAL) 26.49 x10^3/uL (1-3.4); LYMPHS% (MANUAL) 82 % (22-44); MONOS#(MANUAL) 1.62 x10^3/uL (0.3-2.7); MONOS% (MANUAL) 5 % (2-9); SEGS% (MANUAL) 13 % (42-75); SMUDGE CELLS 2+
[2021-05-29] MEDS ORDERED: SODIUM ZIRCONIUM CYCLOSILICATE 10 GM PO ONE (17:30)
[2021-05-29 19:18] VITALS: BP 134/80
[2021-05-29] MEDS: DOXEPIN 25 MG CAPSULE PO SCH (21:07)
[2021-05-30 06:04] LABS: ANION GAP 6 mmol/L (5-15); CALCIUM 8.4 mg/dL (8.5-10.1); CHLORIDE 104 mmol/L (98-107)
[2021-05-30] MEDS: PANTOPRAZOLE 40MG TABLET PO SCH (07:48)
[2021-05-30 07:50] VITALS: BP 123/84
[2021-05-30] MEDS: AMOXICILLIN/CLAV 875-125MG TABLET PO SCH ×2 (08:52→20:07)
[2021-05-30] MEDS: FOLIC ACID 1 MG TABLET PO SCH (08:53)
[2021-05-30] MEDS: SERTRALINE 100MG TABLET PO SCH (08:53)
[2021-05-30] MEDS: GABAPENTIN 300 MG CAPSULE PO SCH ×3 (08:54→20:07)
[2021-05-30] MEDS: THIAMINE 100MG TABLET PO SCH (08:54)
[2021-05-30] MEDS: ALBUTEROL-IPRATROPIUM MDI INH INH SCH ×2 (08:55→20:07)
[2021-05-30 18:41] VITALS: BP 153/85
[2021-05-30] MEDS: DOXEPIN 25 MG CAPSULE PO SCH (20:07)
[2021-05-31 07:29] VITALS: BP 136/80
[2021-05-31] MEDS: PANTOPRAZOLE 40MG TABLET PO SCH (08:03)
[2021-05-31] MEDS: FOLIC ACID 1 MG TABLET PO SCH (09:02)
[2021-05-31] MEDS: THIAMINE 100MG TABLET PO SCH (09:02)
[2021-05-31] MEDS: GABAPENTIN 300 MG CAPSULE PO SCH ×3 (09:02→20:14)
[2021-05-31] MEDS: AMOXICILLIN/CLAV 875-125MG TABLET PO SCH ×2 (09:02→20:14)
[2021-05-31] MEDS: SERTRALINE 100MG TABLET PO SCH (09:04)
[2021-05-31] MEDS: ALBUTEROL-IPRATROPIUM MDI INH INH SCH ×2 (09:07→20:17)
[2021-05-31 14:50] LABS: MEAN CORPUSCULAR HEMOGLOBIN 31.2 pg (27.5-34.5); MEAN CORPUSCULAR HGB CONC 33.7 g/dL (33.2-36.2); PLATELET COUNT 305 x10^3/uL (130-400); RED BLOOD COUNT 4.65 x10^6/uL (4.38-5.82); RED CELL DISTRIBUTION WIDTH 15.8 % (9.4-14.8)
[2021-05-31 15:56] LABS: <PLATELET ESTIMATE> ADEQUATE; <PLT MORPHOLOGY> NORMAL PLT MORPH; ANISOCYTOSIS 1+; BAND#(MANUAL) 0.24 x10^3/uL; BANDS%(MANUAL) 1 % (0-7); BASOS#(MANUAL) 0.24 x10^3/uL (0-0.1); BASOS% (MANUAL) 1 % (0-1); EOS#(MANUAL) 0.47 x10^3/uL (0.0-0.4); EOS% (MANUAL) 2 % (1-7); LYMPH#(MANUAL) 15.75 x10^3/uL (1-3.4); LYMPHS% (MANUAL) 67 % (22-44); MONOS#(MANUAL) 0.71 x10^3/uL (0.3-2.7); MONOS% (MANUAL) 3 % (2-9); SEG#(MANUAL) 6.11 x10^3/uL (1.8-6.8); SEGS% (MANUAL) 26 % (42-75); SMUDGE CELLS 2+
[2021-05-31 19:22] VITALS: BP 133/71
[2021-05-31] MEDS: DOXEPIN 25 MG CAPSULE PO SCH (20:14)
[2021-06-01 07:33] VITALS: BP 119/89
[2021-06-01] MEDS: PANTOPRAZOLE 40MG TABLET PO SCH (07:43)
[2021-06-01] MEDS: CYCLOBENZAPRINE 10 MG TABLET PO PRN (07:43)
[2021-06-01] MEDS: AMOXICILLIN/CLAV 875-125MG TABLET PO SCH (09:24)
[2021-06-01] MEDS: GABAPENTIN 300 MG CAPSULE PO SCH (09:24)
[2021-06-01] MEDS: SERTRALINE 100MG TABLET PO SCH (09:24)
[2021-06-01] MEDS: THIAMINE 100MG TABLET PO SCH (09:24)
[2021-06-01] MEDS: FOLIC ACID 1 MG TABLET PO SCH (09:24)
[2021-06-01] MEDS: ALBUTEROL-IPRATROPIUM MDI INH INH SCH (09:25)
== END 2021-06-01 13:50 | disposition home or self-care (01) | DRG 885 ==
LOC: 3E 15:46
PROVIDERS: ADMIT Psychiatry & Neurology Psychosomatic Medicine; ATTEND Psychiatry & Neurology Psychosomatic Medicine
DX: F33.2 Major depressive disorder, recurrent severe without psychotic features (principal); J69.0 Pneumonitis due to inhalation of food and vomit; J96.01 Acute respiratory failure with hypoxia; R45.851 Suicidal ideations; G89.29 Other chronic pain; F12.90 Cannabis use, unspecified, uncomplicated; F10.20 Alcohol dependence, uncomplicated; J45.909 Unspecified asthma, uncomplicated; K21.9 Gastro-esophageal reflux disease without esophagitis; T38.0X5A Adverse effect of glucocorticoids and synthetic analogues, initial encounter; Z79.899 Other long term (current) drug therapy
CPT/HCPCS: 36415; 80048; 84145; 85025; 87635